=== PATIENT | male | born 1950 | race Caucasian/White ===

== ENCOUNTER → 2020-01-21 | Outpatient (CLI) | payer MEDICARE ==
--- NOTE | 2020-01-21 10:05 | US ---
EXAMINATION TYPE: US venous doppler duplex LE RT DATE OF EXAM: 01/21/2020 9:15 AM COMPARISON: NONE CLINICAL HISTORY: L30.9 Dermatitis unspecified. swelling in right lower leg, no h/o dvt SIDE PERFORMED: Right TECHNIQUE: The lower extremity deep venous system is examined utilizing real time linear array sonog elizabeth with graded compression, doppler sonography and color-flow sonography. VESSELS IMAGED: External Iliac Vein (EIV) Common Femoral Vein Deep Femoral Vein Greater Saphenous Vein * Femoral Vein Popliteal Vein Small Saphenous Vein * Proximal Calf Veins (* superficial vessels) Right Leg: Negative for DVT IMPRESSION: No evidence of DVT.
== END | disposition home or self-care (01) ==
LOC: RADUSWWP 08:52
PROVIDERS: ATTEND Dermatology Procedural Dermatology
DX: L30.9 Dermatitis, unspecified (principal)

== ENCOUNTER → 2021-11-21 | Outpatient (CLI) | payer MEDICARE ==
[2021-11-21 14:23] LABS: African American GFR (CKD) 71.1 (60.0-200.0); Anion Gap 11.4 mmol/L (10.00-18.00); BUN/Creat Ratio 10.67 Ratio (12.00-20.00); Blood Urea Nitrogen 12.8 mg/dL (9.0-27.0); Calcium 9.4 mg/dL (8.7-10.3); Carbon Dioxide 25.6 mmol/L (20.0-27.5); Non-African American GFR(CKD) 61.3 (60.0-200.0); Potassium 3.9 mmol/L (3.5-5.5)
== END | disposition home or self-care (01) ==
LOC: LABWHC1 09:54
PROVIDERS: ATTEND Internal Medicine Clinical Cardiac Electrophysiology
DX: I50.9 Heart failure, unspecified (principal)
CPT/HCPCS: 36415; 80048

== ENCOUNTER 2022-04-10 09:48 | Day surgery (SDC) | payer MEDICARE ==
[~2022-04-10 09:48] MED LIST: CLINDAMYCIN 600 MG in SODIUM CHLORIDE 0.9% 250 ML IRRIGATION PRN; CLINDAMYCIN 900 MG in DEXTROSE 5% IN WATER 50 ML IVPB PRN; DEXAMETHASONE SOD PHOSPHATE 4 MG/ML 1 ML VIAL IV ONE; HYDROmorphone 0.5 MG/0.5 ML SYRINGE IVP PRN; ONDANSETRON 4 MG/2 ML VIAL IVP ONE
[2022-04-10] MEDS ORDERED: SODIUM CHLORIDE 0.9% 1,000 ML IV ONE (10:06)
[2022-04-10] MEDS ORDERED: IOPAMIDOL-370 50ML BTL INJ ONE (13:50)
[2022-04-10] MEDS ORDERED: LIDOCAINE 1% INJ 10MG/ML (30 ML VIAL-PF) SQ ONE ×2 (14:07→14:20)
[2022-04-10] MEDS ORDERED: ACETAMINOPHEN IV (For NPO) 1,000 MG in EMPTY BAG 1 BAG IVPB ONE (15:07)
--- NOTE | 2022-04-10 15:17 | P.EPPROC ---
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 Written informed consent was obtained prior to the procedure. Options, pros and cons, benefits and risks and complications discussed with patient in detail prior to the procedure (shared decision making). Importance of continuing medical treatment emphasized. Alternatives discussed. Patient would like to proceed with dual-chamber ICD implant. Left upper extremity venogram performed. 15 mL IV dye injected in the left arm. Patent axillary/subclavian vein The left pectoral area was prepped and draped as a protocol. IV antibiotics administered 1% lidocaine was used for local anesthesia. A 4 cm incision was made parallel to the deltopectoral groove, about 1.5 cm medial to it. The incision was carried down to the level of the pectoralis muscle and the subfascial pocket was made. Hemostasis was assured. The axillary vein access was obtained. Appropriately sized into to see sheaths were placed. ICD lead implanted in the right ventricle and screwed in. ICD lead tested for threshold, sensing, impedances and tested with high output pacing for diaphragmatic stimulation Atrial lead placed in the right atrial appendage and tested for threshold, sensing, impedance, and tested with high output pacing. Phrenic nerve stimulation Lead secured to the underlying transverse muscle after removing sheaths . Pocket irrigated with antibiotic solution Leads connected to the biventricular ICD generator. Wound closed in 3 layers and dressed per protocol Dual ICD interrogated and programmed. Appropriate pacing parameters, antitachycardia therapies with antitachycardia pacing cardioversion defibrillations programmed. Patient tolerated the procedure well without any acute complications. DFT deferred Will be performed in about 3 months after further maximization of beta blockers
--- NOTE | 2022-04-10 15:18 | P.PRLE ---
RE: Douglas Erazo Dear Dr. Yahir Leong underwent dual-chamber ICD implantation for hypertrophic cardio myopathy/risk of sudden cardiac given his high risk features He tolerated the procedure well without any acute complications I will now maximize his beta blockers further Thank you for entrusting me with the care of the patient Warm regards Sincerely Adán Connors
[2022-04-10] MEDS: LACTATED RINGERS 1,000 ML IV SCH (15:35)
[2022-04-10] MEDS: SODIUM CHLORIDE 0.9% 1,000 ML IV SCH (15:35)
[2022-04-10] MEDS: GABAPENTIN 300 MG CAP PO SCH ×2 (17:25→21:11)
[2022-04-10] MEDS: SACUBITRIL/VALSARTAN 24 MG-26 MG TABLET PO SCH (21:11)
[2022-04-10] MEDS: ACETAMINOPHEN TAB 325 MG TAB PO PRN (21:11)
[2022-04-10] MEDS: METOPROLOL SUCCINATE (ER) 50 MG TAB.ER.24H PO SCH (21:57)
[2022-04-10] MEDS: CLINDAMYCIN 900 MG in DEXTROSE 5% IN WATER 50 ML IVPB SCH ×2 (21:57)
[2022-04-11] MEDS: LACTATED RINGERS 1,000 ML IV SCH (01:41)
[2022-04-11] MEDS: CLINDAMYCIN 900 MG in DEXTROSE 5% IN WATER 50 ML IVPB SCH ×4 (02:25→07:57)
[2022-04-11] MEDS: SODIUM CHLORIDE 0.9% 1,000 ML IV SCH (02:26)
[2022-04-11 06:57] LABS: Basophils # (A) 0.1 k/uL (0-0.2); Basophils % (A) 1 %; Eosinophils # (A) 0.4 k/uL (0-0.7); Eosinophils % (A) 5 %; HCT 44.3 % (39.0-53.0); HGB 15.3 gm/dL (13.0-17.5); Lymphocytes # (A) 2.8 k/uL (1.0-4.8); Lymphocytes % (A) 33 %; MCH 31.4 pg (25.0-35.0); MCHC 34.6 g/dL (31.0-37.0); MCV 90.6 fL (80.0-100.0); Mean Platelet Volume 7.4; Monocytes # (A) 0.7 k/uL (0-1.0); Monocytes % (A) 8 %; Neutrophils # (A) 4.4 k/uL (1.3-7.7); Neutrophils % (A) 52 %; Platelet Count 165 k/uL (150-450); RBC 4.89 m/uL (4.30-5.90); WBC 8.6 k/uL (3.8-10.6)
[2022-04-11 07:12] LABS: Calcium 8.7 mg/dL (8.4-10.2); Potassium 4.6 mmol/L (3.5-5.1)
[2022-04-11 07:33] VITALS: BP 145/80; PULSE 61; RESP 16; TEMP 97.6
[2022-04-11] MEDS: GABAPENTIN 300 MG CAP PO SCH (08:05)
[2022-04-11] MEDS: SACUBITRIL/VALSARTAN 24 MG-26 MG TABLET PO SCH (08:06)
[2022-04-11] MEDS: METOPROLOL SUCCINATE (ER) 50 MG TAB.ER.24H PO SCH (08:06)
[2022-04-11] MEDS: ACETAMINOPHEN TAB 325 MG TAB PO PRN (08:06)
--- NOTE | 2022-04-11 08:13 | XR ---
EXAMINATION TYPE: XR chest 1V portable DATE OF EXAM: 04/11/2022 6:51 AM COMPARISON: Chest radiographs from 6 x 42 TECHNIQUE: XR chest 1V portable Portable AP radiograph of the chest. CLINICAL INDICATION:Male, 71 years old with history of Lead placement check; FINDINGS: Lungs/Pleura: There is no evidence of pleural effusion, focal consolidation, or pneumothorax. Pulmonary vascularity: Unremarkable. Heart/mediastinum: Cardiomediastinal silhouette is enlarged and stable. Two lead cardiac conduction d evice overlying the left hemithorax with lead tips projecting over the right ventricle and right atri um. Musculoskeletal: No acute osseous pathology. IMPRESSION: Cardiac conduction leads appear in appropriate position. No acute cardiopulmonary disease/process.
[2022-04-11] MEDS ORDERED: ATORVASTATIN 20 MG TAB PO SCH (09:00)
[2022-04-11] MEDS ORDERED: SPIRONOLACTONE 25 MG TAB PO SCH (09:00)
[2022-04-11] MEDS ORDERED: FENOFIBRATE 160 MG TAB PO SCH (09:00)
[2022-04-11] MEDS ORDERED: FUROSEMIDE 20 MG TAB PO SCH (09:00)
[2022-04-11] MEDS ORDERED: METOPROLOL SUCCINATE (ER) 100 MG TAB.ER.24H PO SCH (09:00)
--- NOTE | 2022-04-11 10:45 | P.DS ---
Providers Attending physician: Adán Connors Primary care physician: Cristian Sinclair MD Hospital Course: Patient is doing well. Chest discomfort/incisional discomfort related to ICD implant No dizziness no lightheadedness no shortness of breath Minimal soakage of the dressing I explained the precautions of the left arm to the On examination, blood pressure 178/60 245/80 Afebrile Pulse rate in the 60s normal respirations Breath sounds are clear Heart sounds are normal Impression Hypertrophic cardio myopathy with multiple high risk features of sudden cardiac including a wall thickness of 3.1 cm, large apical aneurysm, extensive delayed enhancement on cardiac MRI Bradycardia Status post dual-chamber ICD implant Chest x-ray is normal Antibiotics completed Plan Increase metoprolol to 150 mg by mouth daily in the afternoon, continue all other medications unchanged Discharge home once the device is checked today and is within normal limits Follow-up in the device clinic in one week Follow-up with Dr. Connors in 6-8 weeks for further maximization of beta blockers for at least 200 mg by mouth daily if possible based on his blood pressure readings Patient Condition at Discharge: Stable Plan - Discharge Summary Discharge Rx Participant: No New Discharge Prescriptions: New RX: Metoprolol Succinate [Toprol XL] 50 mg PO DAILY #90 tab Continue RX: Sertraline [Zoloft] 50 mg PO DAILY RX: Fenofibrate [Lofibra] 160 mg PO DAILY RX: Sacubitril/Valsartan [Entresto 24 mg-26 mg Tablet] 1 each PO BID 30 Days #60 tab RX: Furosemide [Lasix] 20 mg PO DAILY RX: Metoprolol Succinate (ER) [Toprol XL] 100 mg PO DAILY RX: Spironolactone [Aldactone] 12.5 mg PO DAILY RX: LORazepam [Ativan] 0.5 - 1 mg PO DAILY PRN PRN Reason: Anxiety RX: Gabapentin 300 mg PO TID RX: Rosuvastatin [Crestor] 10 mg PO DAILY 90 Days #90 tablet Discharge Medication List RX: Sertraline [Zoloft] 50 mg PO DAILY 12/13/13 [History] RX: Fenofibrate [Lofibra] 160 mg PO DAILY 10/09/21 [History] RX: Gabapentin 300 mg PO TID 10/09/21 [History] RX: LORazepam [Ativan] 0.5 - 1 mg PO DAILY PRN 10/09/21 [History] RX: Rosuvastatin [Crestor] 10 mg PO DAILY 90 Days #90 tablet 10/10/21 [Rx] RX: Sacubitril/Valsartan [Entresto 24 mg-26 mg Tablet] 1 each PO BID 30 Days #60 tab 10/10/21 [Rx] RX: Furosemide [Lasix] 20 mg PO DAILY 04/05/22 [History] RX: Metoprolol Succinate (ER) [Toprol XL] 100 mg PO DAILY 04/05/22 [History] RX: Spironolactone [Aldactone] 12.5 mg PO DAILY 04/05/22 [History] RX: Metoprolol Succinate [Toprol XL] 50 mg PO DAILY #90 tab 04/10/22 [Rx] Follow up Appointment(s)/Referral(s): Adán Connors MD [STAFF PHYSICIAN] - 1 Week (Device clinic follow-up in 1 week Follow-up Dr. Connors in 2 months) Activity/Diet/Wound Care/Special Instructions: Post EP study - Ablation instructions 1. Keep access sites dry for 2 days. 2. No heavy lifting or straining for 2 days. 3. Avoid bending the hips repeatedly for 2 days. 4. You may go up and down stairs slowly Call if the following is noted 1. Bleeding, increasing swelling or pain at the access sites. 2. Increasing chest discomfort, especially upon taking a deep breath. 3. Increasing shortness of breath, at rest or with exertion. 4. Undue cough / phlegm 5. Difficulty or pain while swallowing. 6. Pain or change in color in the extremities. 7. Fever, chills, rigors. 8. Increasing headache or neurologic symptoms. 9. Dizziness, fainting, palpitations Increase metoprolol to 100 mg in the morning and 50 mg in the evening Continue other medications as before Discharge Disposition: HOME SELF-CARE
== END 2022-04-11 13:47 | disposition home or self-care (01) ==
LOC: CATHEP 09:48 → 6NMEDSUR 15:05 → CATHEP 04-11 13:47
PROVIDERS: ATTEND Internal Medicine Clinical Cardiac Electrophysiology
DX: I42.2 Other hypertrophic cardiomyopathy (principal); I45.10 Unspecified right bundle-branch block; I25.3 Aneurysm of heart; I10 Essential (primary) hypertension; E11.9 Type 2 diabetes mellitus without complications; Z79.810 Long term (current) use of selective estrogen receptor modulators (SERMs); F17.210 Nicotine dependence, cigarettes, uncomplicated; Z79.01 Long term (current) use of anticoagulants; Z79.1 Long term (current) use of non-steroidal anti-inflammatories (NSAID); Z79.899 Other long term (current) drug therapy; Z79.02 Long term (current) use of antithrombotics/antiplatelets; Z88.0 Allergy status to penicillin; Z88.8 Allergy status to other drugs, medicaments and biological substances
CPT/HCPCS: 33249; 80048; 85025; 71045; C1769 ×3; C1721; C1892 ×2; C1898; C1895; J2001; J0131; Q9967

== ENCOUNTER 2022-08-01 09:11 | Day surgery (SDC) | payer MEDICARE ==
[2022-07-11 09:33] VITALS: BMI 35.6
[~2022-08-01 09:11] MED LIST changes: -CLINDAMYCIN 600 MG in SODIUM CHLORIDE 0.9% 250 ML IRRIGATION PRN; -CLINDAMYCIN 900 MG in DEXTROSE 5% IN WATER 50 ML IVPB PRN; -DEXAMETHASONE SOD PHOSPHATE 4 MG/ML 1 ML VIAL IV ONE; -HYDROmorphone 0.5 MG/0.5 ML SYRINGE IVP PRN; +LACTATED RINGERS 1,000 ML IV SCH; -ONDANSETRON 4 MG/2 ML VIAL IVP ONE; +SODIUM CHLORIDE 0.9% 1,000 ML IV SCH
[2022-08-01 09:45] VITALS: TEMP 99
[2022-08-01 09:53] LABS: Glucose,Whole Blood 108 mg/dL (70-110)
[2022-08-01 10:25] LABS: Calcium 9.7 mg/dL (8.4-10.2); Potassium 4.2 mmol/L (3.5-5.1)
[2022-08-01] MEDS ORDERED: PROPOFOL 10 MG/ML 20 ML VIAL IV ONE (10:50)
[2022-08-01 12:29] VITALS: RESP 16
[2022-08-01 12:34] VITALS: BP 105/55; PULSE 60
--- NOTE | 2022-08-02 18:22 | P.EPPROC ---
- EP Procedure Note Electrophysiology Procedure Note: Diagnosis Hypertrophic cardio myopathy Dual-chamber ICD implant Patient brought in for defibrillation level testing Patient on guideline written medical treatment including beta blockers and ENTRESTO Medtronic dual chamber ICD, cobalt XT interrogated Longevity 12.8 years Atrial pacing impedance 437 ohms, pacing threshold in the atrium 0.5 V at 0.4 ms, impedance 437 ohms, P waves 1.4 mV RV pacing impedance 361 ohms, high-voltage impedance 66 ohms Threshold 0.5 V at 0.4 ms and R waves 9 mV Defibrillation level testing performed VF induced Successfully detected without any dropouts and defibrillated with 10 J shock no post shock noise Delivered energy 9.6 J, charge time 1.82 seconds, shocking impedance 69 ohms New device was then re-programmed. Appropriate antitachycardia pacing cardioversion and defibrillation line first cardioversion at 10 J First defibrillation 40 J Pacing mode [id number]-[id number], lower rate 50 beats a minute, mode switch 171 beats a minute Plan Limited 2-D echo after 2 months. If there is no aneurysm then we will stop BLANCA
== END 2022-08-01 13:06 ==
LOC: CATHEP 09:11
PROVIDERS: ATTEND Internal Medicine Clinical Cardiac Electrophysiology
DX: I42.9 Cardiomyopathy, unspecified (principal); I10 Essential (primary) hypertension; E11.9 Type 2 diabetes mellitus without complications; F41.0 Panic disorder [episodic paroxysmal anxiety]; Z79.899 Other long term (current) drug therapy; Z79.01 Long term (current) use of anticoagulants
CPT/HCPCS: 93642; 80048; J2704